=== PATIENT | male | born 1985 | race African-American/Black ===

== ENCOUNTER 2021-02-14 03:00 | Emergency (ER) | payer OTHER ==
[2021-02-14] MEDS ORDERED: Acetaminophen 325 MG TAB ONE (03:40)
== END 2021-02-14 03:46 | disposition home or self-care (01) ==
LOC: MADERS 03:00
DX: S70.01XA Contusion of right hip, initial encounter (principal); F17.210 Nicotine dependence, cigarettes, uncomplicated; V49.9XXA Car occupant (driver) (passenger) injured in unspecified traffic accident, initial encounter